=== PATIENT | male | born 1970 | race Two or more races ===

== ENCOUNTER 2025-01-30 00:33 | Emergency (ER) | payer BC, SELFPAY ==
[2025-01-30 00:34] VITALS: BP 147/82; PULSE 62; RESP 17; TEMP 36.9; O2SAT 98
--- NOTE | 2025-01-30 01:02 | EDNOTE_ITS ---
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 It also includes 50 mg of Diclofenac. After pain became generalized, patient then took 2 tabs of Tylenol. Patient denies new meds, alcohol/drug use, and recent strenous activity. Patient denies any focal pain. Patient denies URI symptoms and fevers/chills. Limitations: no limitations Related Data Home Medications ?Medication ?Instructions ?Recorded ?Confirmed No Known Home Medications 08/18/2308/04 Allergies Allergy/AdvReac Type Severity Reaction Status Date / Time No Known Allergies Allergy Verified 01/30/25 00:34 Review of Systems Review of Systems Systems Reviewed: All systems reviewed, normal except as documented Musculoskeletal Musculoskeletal: Reports as per HPI and Reports other (muscle pain) Past Medical History Past Medical History NEUROLOGIC: Negative Neurological Disorders or Seizures CARDIAC: Negative Cardiac Disorders or Congestive Heart Failure RESPIRATORY: Negative Chronic Obstructive Pulmonary Disease (COPD) GASTROINTESTINAL: Negative Gastrointestinal Disorders GENITOURINARY: Negative Genitourinary Disorders or Renal Disease REPRODUCTIVE: Negative Fibroids MUSCULOSKELETAL: Negative Musculoskeletal Disorders ENDOCRINE: Negative Endocrine Disorders, Diabetes Mellitus Type 1 or Diabetes Mellitus Type 2 HEMATOLOGIC: Negative Blood Disorders OTHER HISTORY: Negative Autoimmune Disease, Blood Transfusions, Blood Transfus ion Reaction, Anesthesia Reactions, MRSA or Cancer Social History SMOKING STATUS: Never smoker ED Exam General Limitations: Present no limitations General appearance: Present alert and in distress Head Head exam: Present atraumatic Neck Neck exam: Present normal inspection, full ROM and trachea midline Chest Chest inspection: Present normal inspection and symmetric chest wall rise Extremities Exam Extremities exam: Present normal inspection and full ROM Neurological Exam Neurological exam: Present alert and oriented X3 Psychiatric Psychiatric exam: Present normal affect and normal mood Skin Skin exam: Present warm, dry, intact and normal color Course Quality Measures none Orders Category Date Time Status Acetaminophen Stat Lab 01/30/25 01:09 Completed CBC Stat Lab 01/30/25 01:09 Completed CMP [Comprehensive Metabolic Panel] Stat Lab 01/30/25 01:09 Completed Creatine Kinase Stat Lab 01/30/25 01:09 Completed Drug Screen,Urine Stat Lab 01/30/25:25 Completed Lactate (Lactic Acid) Stat Lab 01/30/25 01:09 Completed Magnesium Stat Lab 01/30/25 01:09 Completed Salicylate Stat Lab 01/30/25 01:09 Completed Urinalysis, C/S if Indicated Stat Lab 01/30/25:25 Completed VBG [Venous Blood Gas] Stat Lab 01/30/25 01:09 Completed Diazepam [Valium] Med 01/30/25 00:54 Discontinued 5 mg PO X1 ONE HYDROcodone*/APAP 5/325 [[place] 5/325] Med 01/30/25 00:54 Discontinued 1 tab PO X1 ONE Vital Signs Vital signs: Vital Signs Temperature 98.4 F 01/30/25 00:34 Pulse Rate 62 01/30/25 00:34 Respiratory Rate 17 01/30/25 00:34 Blood Pressure 147/82 H 01/30/25 00:34 Pulse Oximetry (%) 98 01/30/25 00:34 Oxygen Delivery Method Room Air 01/30/25 00:34 O2 at 98% on RA and WNLs Recheck / Abnormal Lab / Rx MDM Narrative MDM Narrative:: 55M with no significant PMH presents to ED with generalized muscle pains after he took 2 tabs of a [place] supplement for 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 It also includes 50 mg of Diclofenac. After pain became generalized, patient then took 2 tabs of Tylenol. Patient denies new meds, alcohol/drug use, and recent strenous activity. Patient denies any focal pain. Patient denies URI symptoms and fevers/chills. Physical exam reveals patient who appears to be in pain. Patient is afebrile and alert. All labs unremarkable including CBC, CMP, CK, VBG, mag, lactate, Tylenol, salicylicate, and tox screen. Meds improved symptoms. Unclear etiology, but may be due to drug contaminant or early URI like flu/COVID. [employer] given. Patient data External records reviewed:: [facility] previous records Clinical information provided by:: patient Social determinants that could affect healthcare access:: none Patient has the following chronic illnesses:: none How is presenting disease/condition affected by chronic disease/condition?: no chronic disease Evaluation data The following diagnostics were reviewed and interpreted by me:: lab results Lab and/or radiology exams considered but not ordered:: ordered Interpretation Summary: above Medications / Prescriptions Medications or Prescriptions considered but not ordered:: ordered Medication administrations:: Medication Administration History Discontinued Medications Hydrocodone Bitart/Acetaminophen (Hydrocodone/Apap 5/325 Tablet) 1 tab PO X1 ONE Stop: 01/30/25 00:55 Last Admin: 01/30/25 01:06 Dose: 1 tab Documented By: FAUZIA Diazepam (Diazepam 5 Mg Tablet) 5 mg PO X1 ONE Stop: 01/30/25 00:55 Last Admin: 01/30/25 01:06 Dose: 5 mg Documented By: FAUZIA above Consultations Consultation(s) initiated? (list below): No Diagnosis Recheck Differential Diagnosis: encounter for medication refill, encounter for wound recheck, encounter for recheck of burn, encounter for removal of sutures, warfarin-induced coagulopathy and other (muscle pain, rhabdo, body aches, URI) Most likely diagnosis given after review of the tests above:: Body aches Admission Indicated Admission indicated?: not indicated Admission Request Was there a request for admission?: No Disposition Plan Disposition Plan: Discharge Discharge Attestation Discharge Attestation: The patient and all family members were given an opportunity to ask questions and understood the discharge instructions. Discharge instructions specifically effects, indications for sooner follow up or return to the emergency department, and the expected course of current diagnosis. Patient condition: Stable Discharge Plan Plan Patient Disposition: HOME (Self Care) Discharge Disposition comment: Stable Prescriptions/Referrals Prescriptions/Med Rec: No Action No Known Home Medications Referrals: Jian Inman MD [Primary Care Provider, Family Practice] - In 1 week Problem List Clinical Impression: Body aches Patient/Caregiver Discharge Instructions Education Materials: ED Myalgias Additional Instructions: Please follow-up with PCP within 24-48 hours and return immediately if symptoms worsen. Ibuprofen/Tylenol can be used simultaneously for greater fever/pain control. Keep hydrated. Advance diet as tolerated. Print Language: Telugu Stand Alone Forms: Patient Portal Info Letter KYRIE/HUNG Supervising Physician VITOR Supervising Physician: Dr. Carrillo
[2025-01-30] MEDS: HYDROcodone/APAP 5/325 TABLET 1 TAB PO (01:06)
[2025-01-30] MEDS: DIAZEPAM 5 MG TABLET PO (01:06)
[2025-01-30 01:29] LABS: Lactate (Lactic Acid) 1.5 mMol/L (0.4-2.0)
[2025-01-30 01:31] LABS: Base Excess, Venous 1 (-3-3); O2 Saturation, Venous 68 % (96-97); PCO2, Venous 39 mmHg (36-56); PO2, Venous 32 mmHg (15-58); pH, Venous 7.42 (7.33-7.66)
[2025-01-30 01:35] LABS: Collection Type, Urine Clean Catch; Squamous Epithelial Cell,Urine 0 /hpf (0-5)
[2025-01-30 01:40] LABS: Basophils # (Auto) 0.0 Thou/mm3 (0.0-0.2); Basophils % (Auto) 0 % (0-2.5); Eosinophils # (Auto) 0.2 Thou/mm3 (0.0-0.5); Eosinophils % (Auto) 2 % (0-10); Hematocrit 38.2 % (41.0-53.0); Hemoglobin 12.6 g/dL (13.5-16.0); Immature Granulocytes Auto 0.02 Thou/mm3 (0.00-0.00); Lymphocytes # (Auto) 4.8 Thou/mm3 (1.0-4.8); Lymphocytes % (Auto) 55 % (10-50); Mean Corpuscular HGB Conc 33.0 g/dl (31.0-37.0); Mean Corpuscular Hemoglobin 28.4 pg (25.0-35.0); Mean Corpuscular Volume 86 fL (80-100); Monocytes # (Auto) 0.7 Thou/mm3 (0.0-0.8); Monocytes % (Auto) 8 % (0-12); Neutrophils # (Auto) 3.1 Thou/mm3 (1.8-7.7); Neutrophils % (Auto) 36 % (37-80); Nucleated Red Blood Cell # 0.00 Thou/mm3 (0.00-0.00); Nucleated Red Blood Cell % 0 /100 WBC (0); Platelet Count 332 Thou/mm3 (140-440); RDW Standard Deviation 41.4 fL (35.1-43.9); Red Blood Count 4.44 Miln/mm3 (4.50-5.90); White Blood Count 8.8 Thou/mm3 (3.8-10.6)
[2025-01-30 01:52] LABS: Acetaminophen 12.2 mcg/mL (10.0-20.0); Alanine Aminotransferase 24 U/L (10-49); Albumin, Serum 4.4 gm/dL (3.5-5.0); Albumin/Globulin Ratio 1.6 (1.2-2.2); Alkaline Phosphatase 100 U/L (46-116); Anion Gap 11 (7-16); Aspartate Amino Transferase 25 U/L (0-34); BUN/Creatinine Ratio 8 Ratio (12-20); Bilirubin,Total 0.4 mg/dL (0.3-1.2); Blood Urea Nitrogen 8 mg/dL (9-23); Calcium 8.9 mg/dL (8.3-10.6); Calcium (Corrected) 8.9 mg/dL (8.5-10.1); Carbon Dioxide 24.7 mMol/L (20.0-31.0); Chloride 107 mMol/L (98-107); Creatine Kinase 135 U/L (34-171); Creatinine (Component) 1.0 mg/dL (0.6-1.3); Globulin 2.7 gm/dL (2.3-3.5); Glucose 88 mg/dL (74-106); Magnesium 2.0 mg/dL (1.6-2.6); Osmolality,Calculated 282 (275-295); Potassium 3.5 mMol/L (3.4-5.1); Salicylate < 3.0 mg/dL; Sodium 143 mMol/L (136-145); Total Protein 7.1 gm/dL (5.7-8.2); eGFR > 60 See Note
[2025-01-30 01:53] LABS: Bilirubin,Urine Negative (Negative); Blood,Urine Negative (Negative); Clarity,Urine Clear (Clear/Hazy); Color,Urine Lt-Yellow (Lt Yel-Yel); Culture Indicated,Urine Not Indicated; Glucose, Urine Negative (Negative); Ketones,Urine Negative (Negative); Leukocyte Esterase,Urine Negative (Negative); Nitrite,Urine Negative (Negative); PH,Urine 6.0 (5.0-7.0); Protein,Urine Negative (Neg - Trace); RBC,Urine 1 /hpf (0-3); Specific Gravity,Urine 1.018 (1.001-1.035); Urobilinogen,Urine Negative mg/dL (0.0-1.0); WBC,Urine 1 /hpf (0-5)
[2025-01-30 02:41] LABS: Amphetamine/Methamp Scrn,U Negative (Negative); Barbiturate Screen,Urine Negative (Negative); Benzodiazepines Screen,Urine Negative (Negative); Benzoylecgonine Screen, Ur Negative (Negative); Fentanyl Screen,Urine Negative (Negative); Opiate Screen,Urine Negative (Negative); THC Screen,Urine Negative (Negative)
[2025-01-30 02:54] VITALS: BP 121/75; PULSE 50; RESP 16; TEMP 36.7; O2SAT 97
== END 2025-01-30 03:09 | disposition home or self-care (01) ==
PROVIDERS: Physician Assistant; Emergency Provider Emergency Medicine; PCP Family Medicine
DX: M79.18 Myalgia, other site (principal)
CPT/HCPCS: 36415; 80053; 80307; 80329; 81001; 82550; 82803; 83605; 83735; 85025; 99282; A9270; G0480